=== PATIENT | female | born 1965 | race Caucasian/White ===

== ENCOUNTER 2017-04-02 14:34 | Outpatient (CLI) | payer BC ==
--- NOTE | 2017-04-02 15:44 | ULT ---
ULTRASOUND WITH DOPPLER DUPLEX VENOUS LOWER EXTREMITY LEFT: HISTORY: 51-year-old female with edema of the left calf. TECHNIQUE: Color flow Doppler, spectral waveform analysis of pulsed Doppler, and zuluaga-scale imaging with compre ssion and augmentation, were used to evaluate the left common femoral, femoral, popliteal, posterior tibial, and superficial femoral, veins; and the proximal portions of the profunda femoral and great er saphenous, veins. FINDINGS: There is normal compressibility, demonstration of blood flow by color Doppler and pulsed Doppler, an d response to augmentation, in all interrogated veins. IMPRESSION: Negative. No deep vein thrombosis in the left lower extremity. becki POS: EDUARDO
== END 2017-04-02 14:35 | disposition home or self-care (01) ==
LOC: SCSULT 14:34
PROVIDERS: ATTEND Family Medicine
DX: M79.89 Other specified soft tissue disorders (principal)

== ENCOUNTER 2017-04-03 13:05 | Outpatient (CLI) | payer BC ==
--- NOTE | 2017-04-03 14:09 | MMO ---
RIGHT BREAST DIAGNOSTIC MAMMOGRAM: Date: 04/03/17 Comparison made to [facility] images from earlier in the day. Digital screening mammogram obtai to without tomosynthesis. FINDINGS: Again, the area of abnormal density is seen on the CC view. I cannot definitively visualize this on the right breast mediolateral, as well as right breast MLO mag views. Further workup using sonograph y may be of use. IMPRESSION: BIRADS 0: Incomplete: Need Additional Imaging Evaluation and/or Prior Mammograms for Comparison Additional right breast sonographic evaluation recommended. The facility will notify the patient of the need for additional imaging services. POS: EDUARDO
--- NOTE | 2017-04-03 14:31 | ULT ---
RIGHT BREAST DIAGNOSTIC ULTRASOUND: Date: 04/03/17 HISTORY: Abnormal mammogram. TECHNIQUE: Multiple longitudinal and transverse images of the right breast 3 o'clock position obtained using a multihertz linear array transducer. Real-time and color flow images demonstrate a 1.2 x 0.8 x 0.6 cm small cyst with a small tail in the breast at the 3 o'clock position. No further workup is indicate d. Correlate with follow-up screening mammography in 1 year. IMPRESSION: BIRADS 2: Benign Finding(s) POS: EDUARDO
== END 2017-04-03 13:06 | disposition home or self-care (01) ==
LOC: MAMMO 13:05
PROVIDERS: ATTEND Obstetrics & Gynecology
DX: R92.2 Inconclusive mammogram (principal)
CPT/HCPCS: G0206-RT

== ENCOUNTER 2017-10-07 13:59 | Outpatient (CLI) | payer BC ==
--- NOTE | 2017-10-08 15:54 | OP ---
This is an arterial ultrasound performed on 10/07/2017. Bilateral lower extremity arterial Doppler e xamination was performed on 10/07/2017. There are triphasic waveforms throughout both left and right lower extremities, on the right ankle brachial index is 1.23, on the left ankle brachial index is 1. 17. ASSESSMENT: This is a normal arterial Doppler examination.
== END 2017-10-07 14:00 | disposition home or self-care (01) ==
LOC: ULT 13:59
PROVIDERS: ATTEND Family Medicine
DX: R68.89 Other general symptoms and signs (principal)
CPT/HCPCS: 93922

== ENCOUNTER 2018-12-11 15:34 | Outpatient (CLI) | payer BC ==
--- NOTE | 2018-12-11 16:04 | MMO ---
Bilateral MAMMO Bilat Screen [facility]. CLINICAL HISTORY: Patient is 53 years old and is seen for screening. The patient has the following family history of breast cancer: mother, at age 82. The patient has no personal history of cancer. The patient has a history of right Cyst Aspiration in September, - benign. VIEWS: The views performed were: bilateral craniocaudal with tomosynthesis and bilateral mediolateral oblique with tomosynthesis. FILMS COMPARED: The present examination has been compared to prior imaging studies performed at [facility] on 08/30/2015 and 04/03/2017. MAMMOGRAM FINDINGS: The breasts are heterogeneously dense, which could obscure a lesion on mammography. There are stable benign appearing calcifications seen in both breasts. There are no suspicious masses, suspicious calcifications, or new areas of architectural distortion. IMPRESSION: THERE IS NO MAMMOGRAPHIC EVIDENCE OF MALIGNANCY. A ROUTINE FOLLOW-UP MAMMOGRAM IN 1 YEAR IS RECOMMENDED. THE RESULTS OF THIS EXAM WERE SENT TO THE PATIENT. ACR BI-RADS Category 2 - Benign finding MAMMOGRAPHY NOTE: 1. A negative mammogram report should not delay a biopsy if a dominant of clinically suspicious mass is present. 2. Approximately 10% to 15% of breast cancers are not detected by mammography. 3. Adenosis and dense breasts may obscure an underlying neoplasm.
== END 2018-12-11 15:35 | disposition home or self-care (01) ==
LOC: BICMAMMO 15:34
PROVIDERS: ATTEND Family Medicine
DX: Z12.31 Encounter for screening mammogram for malignant neoplasm of breast (principal); Z80.3 Family history of malignant neoplasm of breast; Z98.890 Other specified postprocedural states
CPT/HCPCS: 77063; 77067

== ENCOUNTER 2019-05-11 08:30 | Outpatient (CLI) | payer BC ==
--- NOTE | 2019-05-11 10:08 | RAD ---
BARIUM SWALLOW ESOPHAGRAM: HISTORY: Possible hiatal hernia. Back pain. COMPARISON: None. 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 Lungs and pleural spaces are clear. No masses or consolidation. No pneumothorax or osseous abnormalities. The cervical and thoracic esophagus have an overall normal course and caliber. There is a small hiata l hernia without evidence of reflux during intermittent fluoroscopy. Standard 13 mm barium tablet passes without difficulty. IMPRESSION: Small hiatal hernia without evidence of reflux during intermittent fluoroscopy. Transcribed Date/Time: 05/11/2019 10:25 AM
== END 2019-05-11 08:31 | disposition home or self-care (01) ==
LOC: RAD 08:30
PROVIDERS: ATTEND Internal Medicine Gastroenterology
DX: M54.6 Pain in thoracic spine (principal); K44.9 Diaphragmatic hernia without obstruction or gangrene
CPT/HCPCS: 74220